=== PATIENT | female | born 1975 | race Caucasian/White ===

== ENCOUNTER 2016-07-25 12:26 | Emergency (ER) | payer MEDICAID ==
[~2016-07-25] VITALS: Ht 167.6 cm; Wt 70.0 kg
[~2016-07-25 12:26] MED LIST: CLIN1CAP5 PO; IBUP800T23 PO; METH750T2 PO
[2016-07-25 12:27] VITALS: BP 138/79; PULSE 84; RESP 22; TEMP 97.9; O2SAT 97
[2016-07-25] MEDS ORDERED: IBUP-232 PO (16:48)
== END 2016-07-25 15:30 | disposition left against medical advice (07) ==
LOC: NED 12:26
DX: R51 Headache (principal)
CPT/HCPCS: 99281

== ENCOUNTER 2016-07-25 13:05 | Emergency (ER) | payer MEDICAID ==
[~2016-07-25] VITALS: Ht 167.6 cm; Wt 78.0 kg
[2016-07-25 13:11] VITALS: BP 140/108; PULSE 94; RESP 16; TEMP 98.1; O2SAT 100
--- NOTE | 2016-07-25 15:10 | PD ---
HPI Chief Complaint: Headache Time Seen by Provider: 14:56 Travel History International Travel<30 days: No Contact w/Intl Traveler<30days: No Traveled to known affect area: No History of Present Illness HPI 40yo F with no significant PMH presents to the ED with c/o generalized pain everywhere as well as a headache today. +Nausea. Pt states she has frequent headaches and usually takes tylenol but did not today. Denies any fever, neck pain, visual changes, focal weakness or numbness, chest pain, sob, vomiting. Denies any fall. PFSH Past Medical History Diminished Hearing: No Genitourinary: Yes (HERPES) Headaches: Yes Neurologic: Yes (MRI OF BRAIN SHOWED ABNORMALITY ON LEFT SIDE 2008 , MRI 2012 - NORMAL) Migraines: Yes Tetanus Vaccination: > 5 Years Influenza Vaccination: No ?: Not Menopausal: No : 4 Para: 3 Miscarriage: 1 : 1 Past Surgical History Tonsillectomy: Yes Social History Alcohol Use: Yes (OCCASIONAL) Tobacco Use: Yes (1/2PPD) Substance Use: No Allergies-Medications (Allergen,Severity, Reaction): Coded Allergies: Amoxicillin (Verified Allergy, Severe, HIVES/SOB, 07/25/16) Ampicillin (Verified Allergy, Severe, NOTED ON LABOR ROOM ORDERS RXN?, 07/25/16) Penicillin (Verified Allergy, Severe, hives/sob, 07/25/16) Reported Meds & Prescriptions Reported Meds & Active Scripts Active No Active Prescriptions or Reported Medications Review of Systems Except as stated in HPI: all other systems reviewed are Neg Physical Exam Narrative GENERAL: 40yo F in mild distress. SKIN: Warm and dry. HEAD: Atraumatic. Normocephalic. EYES: Pupils equal and round. No scleral icterus. No injection or drainage. ENT: No nasal bleeding or discharge. Mucous membranes pink and moist. NECK: Trachea midline. No JVD. CARDIOVASCULAR: Regular rate and rhythm. No murmur appreciated. RESPIRATORY: No accessory muscle use. Clear to auscultation. Breath sounds equal bilaterally. GASTROINTESTINAL: Abdomen soft, non-tender, nondistended. No rebound tenderness or guarding. MUSCULOSKELETAL: No obvious deformities. No clubbing. No cyanosis. No edema. NEUROLOGICAL: Awake and alert. No obvious cranial nerve deficits. Motor grossly within normal limits. Normal speech. Data Data Last Documented VS Vital Signs Date Time Temp Pulse Resp B/P Pulse Ox O2 Delivery O2 Flow Rate FiO2 07/25/16 16:30 16 07/25/16 16:29 84 140/82 97 Room Air 07/25/16 13:11 98.1 Orders Ketorolac Inj (Toradol Inj) (07/25/16 15:15) Ondansetron Inj (Zofran Inj) (07/25/16 15:15) Sodium Chlor 0.9% 1000 Ml Inj (Ns 1000 M (07/25/16 15:15) Urinalysis - C+S If Indicated (07/25/16 15:01) Ed Urine Pregnancytest Poc (07/25/16 15:01) Influenzae A/B Antigen (07/25/16 15:10) Diazepam (Valium) (07/25/16 16:15) Labs Laboratory Tests Test 07/25/16 15:00 Urine Collection Type CLEAN CATCH Urine Color STRAW Urine Turbidity SLIGHT Urine pH 8.0 Urine Specific [place] 1.013 Urine Protein NEG mg/dL Urine Glucose (UA) NEG mg/dL Urine Ketones NEG mg/dL Urine Occult Blood TRACE Urine Nitrite NEG Urine Bilirubin NEG Urine Leukocyte Esterase NEG Urine RBC 4-9 /hpf Urine Squamous Epithelial 6-8 /hpf Cells Urine Amorphous Sediment FEW Microscopic Urinalysis Comment CULT NOT INDICATED Urine Collection Time 1500 MDM Medical Decision Making Medical Screen Exam Complete: Yes Emergency Medical Condition: Yes Differential Diagnosis Influenza vs. migraine headache vs. tension headache vs. malingering Narrative Course 40yo F with generalized pain as well as headache that feels like her normal headache. Pt did not take anything for pain at home. No focal neurologic deficits. No red flags. UA negative. VS stable. Pt given toradol, zofran and NS IVF and headache resolved. Urine negative. Pt given valium 5mg PO and no longer has pain in her body. Return precautions given. Diagnosis Primary Impression: Headache Qualified Code: G44.209 - Acute non intractable tension-type headache Patient Instructions: General Instructions Departure Forms: Tests/Procedures Additional Instructions: Please return to the ED if symptoms worsen. Please follow up with PMD in 3-7 days. Med/Other Pt SpecificInfo: Prescription(s) given Scripts Ibuprofen 600 Mg Cyr087 Mg PO Q8HR PRN (PAIN) #20 TAB Ref 0 Prov:Miranda,Yani DO 07/25/16 Disposition: 01 DISCHARGE HOME Condition: Stable Yani Miranda DO Jul 25, 2016 15:10
[2016-07-25] MEDS ORDERED: SODIUM CHLOR 0.9% 1000 ML INJ 1,000 ML IV ONE (15:15)
[2016-07-25] MEDS ORDERED: KETOROLAC TROMETHAMINE 30 MG/ML (IVP) VIAL IV PUSH ONE (15:15)
[2016-07-25] MEDS ORDERED: ONDANSETRON HCL 4 MG/2 ML VIAL IV PUSH ONE (15:15)
[2016-07-25 15:30] LABS: BLOOD, URINE TRACE (NEG); GLUCOSE,URINE NEG (NEG); KETONE, URINE NEG (NEG); NITRITE,URINE NEG (NEG)
[2016-07-25 15:34] LABS: METHOD OF COLLECTION CLEAN CATCH; URINE COLOR STRAW (YELLW/STRAW)
[2016-07-25 15:38] LABS: COMMENT (UR) CULT NOT INDICATED; CULTURE IF INDICATED CULT NOT INDICATED
[2016-07-25] MEDS ORDERED: DIAZEPAM 5 MG TAB PO ONE (16:15)
[2016-07-25 16:29] VITALS: BP 140/82; PULSE 84; RESP 18; O2SAT 97
[2016-07-25 16:30] VITALS: RESP 16
[2016-07-25] MEDS ORDERED: IBUP-232 PO (16:48)
== END 2016-07-25 17:20 | disposition home or self-care (01) ==
LOC: PHED 13:05
DX: R51 Headache (principal); R52 Pain, unspecified; R11.0 Nausea; F17.210 Nicotine dependence, cigarettes, uncomplicated
CPT/HCPCS: 81001; 84703; 87804; 96361; 96374; 96375; 99284; J1885; J2405; J7030

== ENCOUNTER 2017-09-10 16:14 | Observation (INO) | payer MEDICAID, OTHER ==
[~2017-09-10] VITALS: Ht 162.6 cm; Wt 80.0 kg
[~2017-09-10 16:14] MED LIST changes: -CLIN1CAP5 PO; +IBUP-232 PO; -IBUP800T23 PO; -METH750T2 PO
[2017-09-10 16:28] VITALS: BP 125/83; PULSE 120; RESP 24; O2SAT 99
[2017-09-10] MEDS ORDERED: SODIUM CHLOR 0.9% 1000 ML INJ 1,000 ML IV SCH (16:36)
--- NOTE | 2017-09-10 16:38 | PD ---
HPI Chief Complaint: Abdominal Pain Time Seen by Provider: 16:35 Travel History International Travel<30 days: No Contact w/Intl Traveler<30days: No Traveled to known affect area: No History of Present Illness HPI 41-year-old female presents emergency department with reports of several days of feeling constipated, but awakening this morning with nausea, vomiting, increasing pain which is now localized into the right lower quadrant. Patient states pain radiates to her back. She denies fever or chills. Patient denies urinary symptoms. No history of kidney stones. Patient still has her appendix. Patient denies . Pain is 10 out of 10. Patient is very emotional and crying. Patient is allergic to amoxicillin. PFSH Past Medical History Diminished Hearing: No Genitourinary: Yes (HERPES) Headaches: Yes Neurologic: Yes (MRI OF BRAIN SHOWED ABNORMALITY ON LEFT SIDE 2008 , MRI 2012 - NORMAL) Migraines: Yes Tetanus Vaccination: > 5 Years Influenza Vaccination: Yes ?: Unknown Menopausal: No : 4 Para: 3 Miscarriage: 1 : 1 Past Surgical History Tonsillectomy: Yes Social History Alcohol Use: Yes (OCCASIONAL) Tobacco Use: Yes (1/2PPD) Substance Use: No Allergies-Medications (Allergen,Severity, Reaction): Coded Allergies: amoxicillin (Verified Allergy, Severe, HIVES/SOB, 09/10/17) ampicillin (Verified Allergy, Severe, rash, 09/10/17) penicillin G (Verified Allergy, Intermediate, hives/sob, 09/10/17) Reported Meds & Prescriptions Reported Meds & Active Scripts Active No Active Prescriptions or Reported Medications Review of Systems General / Constitutional: Positive: Chills, No: Fever Eyes: No: Visual changes HENT: No: Headaches Cardiovascular: No: Chest Pain or Discomfort Respiratory: No: Shortness of Breath Gastrointestinal: Positive: Nausea, Vomiting, Abdominal Pain (See history of present illness), Constipation, Loss of Appetite Genitourinary: No: Urgency, Frequency, Dysuria, Vaginal Bleeding Musculoskeletal: No: Pain Skin: No Rash Neurologic: No: Weakness Psychiatric: No: Depression Endocrine: No: Polydipsia Hematologic/Lymphatic: No: Easy Bruising Physical Exam Narrative GENERAL: Patient is very histrionic, crying, obviously in pain. She is able to ambulate to the bathroom for urine however. SKIN: Warm and dry. Normal color. Normal turgor. No rash HEAD: Atraumatic. Normocephalic. EYES: Pupils equal and round. No scleral icterus. No injection or drainage. ENT: No nasal bleeding or discharge. Mucous membranes pink and moist. Pharynx is clear. Airways patent. NECK: Trachea midline. Supple and nontender CARDIOVASCULAR: Regular rate and rhythm. RESPIRATORY: No accessory muscle use. Clear to auscultation. Breath sounds equal bilaterally. GASTROINTESTINAL: Abdomen soft, patient has moderate right lower quadrant tenderness with point tenderness and guarding, nondistended. Exam is limited secondary to patient's pain and lack of cooperation. Hepatic and splenic margins not palpable. MUSCULOSKELETAL: Extremities without clubbing, cyanosis, or edema. No obvious deformities. NEUROLOGICAL: Awake and alert. No obvious cranial nerve deficits. Motor grossly within normal limits. Five out of 5 muscle strength in the arms and legs. Normal speech. PSYCHIATRIC: Appropriate mood and affect; insight and judgment normal. Data Data Last Documented VS Vital Signs Date Time Temp Pulse Resp B/P (MAP) Pulse Ox O2 Delivery O2 Flow Rate FiO2 09/10/17 19:10 104 22 151/70 (97) 100 Room Air Orders Orders Complete Blood Count With Diff (09/10/17 16:36) Comprehensive Metabolic Panel (09/10/17 16:36) Lipase (09/10/17 16:36) Lactic Acid (09/10/17 16:36) Prothrombin Time / Inr (Pt) (09/10/17 16:36) Act Partial Throm Time (Ptt) (09/10/17 16:36) Urinalysis - C+S If Indicated (09/10/17 16:36) Ct Abd/Pel W Iv Contrast(Rout) (09/10/17 16:36) Iv Access Insert/Monitor (09/10/17 16:36) Ecg Monitoring (09/10/17 16:36) Oximetry (09/10/17 16:36) Morphine Inj (Morphine Inj) (09/10/17 16:45) Ondansetron Inj (Zofran Inj) (09/10/17 16:45) Sodium Chlor 0.9% 1000 Ml Inj (Ns 1000 M (09/10/17 16:36) Sodium Chloride 0.9% Flush (Ns Flush) (09/10/17 16:45) Electrocardiogram (09/10/17 16:36) Ed Urine Pregnancytest Poc (09/10/17 16:36) Dicyclomine Inj (Bentyl Inj) (09/10/17 17:15) Morphine Inj (Morphine Inj) (09/10/17 17:15) Iohexol 350 Inj (Omnipaque 350 Inj) (09/10/17 17:47) Hydromorphone Pf Inj (Dilaudid Pf Inj) (09/10/17 18:30) Metoclopramide Inj (Reglan Inj) (09/10/17 18:45) Ketorolac Inj (Toradol Inj) (09/10/17 19:30) Us Pelvis Comp W Doppler (09/10/17 ) Admit Order (Ed Use Only) (09/10/17 20:37) Labs Laboratory Tests Test 09/10/17 17:00 09/10/17 17:10 09/10/17 17:11 White Blood Count 19.8 TH/MM3 Red Blood Count 4.49 MIL/MM3 Hemoglobin 14.5 GM/DL Hematocrit 40.6 % Mean Corpuscular Volume 90.5 FL Mean Corpuscular Hemoglobin 32.3 PG Mean Corpuscular Hemoglobin Concent 35.6 % Red Cell Distribution Width 13.0 % Platelet Count 234 TH/MM3 Mean Platelet Volume 9.1 FL Neutrophils (%) (Auto) 77.6 % Lymphocytes (%) (Auto) 13.7 % Monocytes (%) (Auto) 5.5 % Eosinophils (%) (Auto) 3.0 % Basophils (%) (Auto) 0.2 % Neutrophils # (Auto) 15.4 TH/MM3 Lymphocytes # (Auto) 2.7 TH/MM3 Monocytes # (Auto) 1.1 TH/MM3 Eosinophils # (Auto) 0.6 TH/MM3 Basophils # (Auto) 0.0 TH/MM3 CBC Comment DIFF FINAL Differential Comment Prothrombin Time 10.3 SEC Prothromb Time International Ratio 1.0 RATIO Activated Partial Thromboplast Time 29.6 SEC Blood Urea Nitrogen 17 MG/DL Creatinine 0.98 MG/DL Random Glucose 117 MG/DL Total Protein 8.5 GM/DL Albumin 4.7 GM/DL Calcium Level 9.4 MG/DL Alkaline Phosphatase 53 U/L Aspartate Amino Transf (AST/SGOT) 27 U/L Alanine Aminotransferase (ALT/SGPT) 22 U/L Total Bilirubin 0.9 MG/DL Sodium Level 135 MEQ/L Potassium Level 4.3 MEQ/L Chloride Level 103 MEQ/L Carbon Dioxide Level 21.6 MEQ/L Anion Gap 10 MEQ/L Estimat Glomerular Filtration Rate 63 ML/MIN Lipase 46 U/L Lactic Acid Level 1.2 mmol/L Urine Color DARK-BROWN Urine Turbidity HAZY Urine pH 5.5 Urine Specific [place] GREATER THAN 1.050 Urine Protein 300 mg/dL Urine Glucose (UA) NEG mg/dL Urine Ketones TRACE mg/dL Urine Occult Blood SMALL Urine Nitrite NEG Urine Bilirubin NEG Urine Urobilinogen 4.0 MG/DL Urine Leukocyte Esterase TRACE Urine RBC 8 /hpf Urine Squamous Epithelial Cells 1 /hpf Urine Calcium Oxalate Crystals MOD /hpf Urine Hyaline Casts 4 /lpf Urine Mucus MANY /lpf Microscopic Urinalysis Comment CULT NOT INDICATED MDM Medical Decision Making Medical Screen Exam Complete: Yes Emergency Medical Condition: Yes Medical Record Reviewed: Yes Differential Diagnosis Right lower quadrant pain. Appendicitis. Ectopic . Torsed ovary. Urinary tract infection. Renal colic. Diverticulitis. Narrative Course Patient is medically stable at time of exam. Labs ordered including CBC, CMP, lactic acid, lipase, urinalysis, urine , serum hCG. IV access is obtained the patient is given 4 mg morphine IV, as well as [address] of the abdomen with IV contrast is given. CBC shows leukocytosis of 19.8. Coagulation studies are unremarkable. Chemistry shows sodium 135, normal BUN and creatinine. Random glucose 117, lactic acid 1.2. Lipase is normal at 46. CT scan read as: . Nonspecific appearance to the bowel with mild dilation of distal small bowel loops and some air-fluid levels in the colon. The findings suggest ileus. Recommend serial films. Patient discussed with Dr. Villalobos. Call was placed by Dr. Villalobos to the radiologist and the CT results were specifically discussed questioning whether there was any sign of appendicitis. Dr. Gomez explained no signs of acute appendicitis are noted on this study, and that he feels this is more of an ileus by his reading. Patient was given Dilaudid 2 mg IV as well as 10 mg Reglan IV. Pelvic ultrasound was ordered to rule out ovarian torsion. 1900 hrs., pelvic ultrasound is still pending. Care of the patient is assumed by Dr. Villalobos, and he will determine final disposition of the patient. Scripts No Active Prescriptions or Reported Meds Condition: Stable Samuel,Dillon F. PA Sep 10, 2017 16:38
[2017-09-10] MEDS ORDERED: ONDANSETRON HCL 4 MG/2 ML VIAL IVP ONE (16:45)
[2017-09-10] MEDS ORDERED: SODIUM CHLORIDE 0.9% FLUSH 10 ML FLUSH IV FLUSH PRN ×2 (16:45→21:45)
[2017-09-10] MEDS ORDERED: MORPHINE SULFATE 4 MG/ML INJ IV PUSH ONE (16:45)
[2017-09-10 17:08] VITALS: PULSE 99; RESP 16; O2SAT 100
[2017-09-10] MEDS ORDERED: MORPHINE SULFATE 2 MG/ML INJ IV PUSH ONE (17:15)
[2017-09-10] MEDS ORDERED: DICYCLOMINE HCL 20 MG/2 ML VIAL IM ONE (17:15)
[2017-09-10] MEDS ORDERED: IOHEXOL 350 MG/ML 10 ML VIAL (for RAD DIAG) IVCONTRAST ONE (17:47)
[2017-09-10 17:51] LABS: AUTOMATED NEUTROPHIL # 15.4 TH/MM3 (1.8-7.7); BASOPHIL % 0.2 % (0.0-2.0); EOSINOPHIL # 0.6 TH/MM3 (0-0.4); HEMATOCRIT 40.6 % (35.0-46.0); HEMOGLOBIN 14.5 GM/DL (11.6-15.3); LYMPH % 13.7 % (9.0-44.0); LYMPHOCYTE # 2.7 TH/MM3 (1.0-4.8); MEAN CELL VOLUME 90.5 FL (80.0-100.0); MEAN CORPUSCULAR HEMOGLOBIN 32.3 PG (27.0-34.0); MEAN CORPUSCULAR HGB CONC 35.6 % (32.0-36.0); MEAN PLATELET VOLUME 9.1 FL (7.0-11.0); MONO % 5.5 % (0.0-8.0); MONOCYTE # 1.1 TH/MM3 (0-0.9); NEUT % 77.6 % (16.0-70.0); PLATELET COUNT 234 TH/MM3 (150-450); RED BLOOD COUNT 4.49 MIL/MM3 (4.00-5.30); WHITE BLOOD COUNT 19.8 TH/MM3 (4.0-11.0)
[2017-09-10 18:01] LABS: PROTHROMBIN TIME - PATIENT 10.3 SEC (9.8-11.6)
[2017-09-10 18:07] LABS: ALBUMIN 4.7 GM/DL (3.4-5.0); ALT (GPT) 22 U/L (10-53); AST (GOT) 27 U/L (15-37); BICARBONATE 21.6 MEQ/L (21.0-32.0); BLOOD UREA NITROGEN 17 MG/DL (7-18); CALCIUM 9.4 MG/DL (8.5-10.1); CHLORIDE 103 MEQ/L (98-107); CREATININE 0.98 MG/DL (0.50-1.00); GLOMERULAR FILTRATION RATE 63 ML/MIN (>89); GLUCOSE,RANDOM 117 MG/DL (74-106); SODIUM (NA) 135 MEQ/L (136-145)
[2017-09-10 18:09] LABS: ALKALINE PHOSPHATASE 53 U/L (45-117); TOTAL BILIRUBIN ADULT 0.9 MG/DL (0.2-1.0); TOTAL PROTEIN 8.5 GM/DL (6.4-8.2)
--- NOTE | 2017-09-10 18:27 | RADRPT ---
EXAM DATE/TIME: 09/10/2017 17:45 [facility] COMPARISON: No previous studies available for comparison. INDICATIONS : Severe right side abdomen pain with nausea and vomiting. IV CONTRAST: 91 cc Omnipaque 350 (iohexol) IV ORAL CONTRAST: No oral contrast ingested. RADIATION DOSE: 8.76 CTDIvol (mGy) MEDICAL HISTORY : None SURGICAL HISTORY : None. ENCOUNTER: Initial ACUITY: 1 day PAIN SCALE: 10/10 LOCATION: Right TECHNIQUE: Volumetric scanning of the abdomen and pelvis was performed. Using automated exposure control and ad justment of the mA and/or kV according to patient size, radiation dose was kept as low as reasonably achievable to obtain optimal diagnostic quality images. DICOM format image data is available electro nically for review and comparison. FINDINGS: There is a mild motion degradation of the abdominal images. LOWER LUNGS: The visualized lower lungs are clear. LIVER: Homogeneous density without lesion. There is no dilation of the biliary tree. No calcified gallston es. SPLEEN: Normal size without lesion. PANCREAS: Within normal limits. KIDNEYS: Normal in size and shape. There is no mass, stone or hydronephrosis. ADRENAL GLANDS: Within normal limits. VASCULAR: There is no aortic aneurysm. BOWEL/MESENTERY: There are mildly prominent fluid filled loops of mid and distal small bowel measuring up to 2.8 cm in dimension. The colon also contains fluid with some colonic air fluid levels. Stool is seen in the rectum and sigmoid.. ABDOMINAL WALL: Within normal limits. RETROPERITONEUM: There is no lymphadenopathy. BLADDER: No wall thickening or mass. REPRODUCTIVE: T-shaped IUD in the anteverted uterus. No evidence of free fluid. INGUINAL: There is no lymphadenopathy or hernia. MUSCULOSKELETAL: Within normal limits for patient age. CONCLUSION: 1. Nonspecific appearance to the bowel with mild dilation of distal small bowel loops and some air-fl uid levels in the colon. The findings suggest ileus. Recommend serial films. Sidney Gomez MD on September 10, 2017 at 18:20 Board Certified Radiologist. This report was verified electronically.
[2017-09-10] MEDS ORDERED: HYDROmorphone HCL PF 2 MG/ML VIAL IV PUSH ONE (18:30)
[2017-09-10] MEDS ORDERED: METOCLOPRAMIDE HCL 10 MG/2 ML VIAL IV PUSH ONE (18:45)
[2017-09-10 18:49] LABS: BLOOD, URINE SMALL (NEG); CALCIUM OXALATE CRYSTALS,URINE MOD /hpf; GLUCOSE,URINE NEG (NEG); HYALINE CAST, URINE 4 /lpf (RARE); KETONE, URINE TRACE mg/dL (NEG); MUCUS URINE MANY /lpf (OCC); NITRITE,URINE NEG (NEG); PH, URINE 5.5 (5.0-8.5); SQUAMOUS EPITHELIAL CELL URINE 1 /hpf (0-5); URINE LEUKOCYTE ESTERASE TRACE (NEG)
[2017-09-10 18:55] LABS: BILIRUBIN, URINE NEG (NEG); URINE COLOR DARK-BROWN (YELLW/STRAW)
[2017-09-10 19:10] VITALS: BP 151/70; PULSE 104; RESP 22; O2SAT 100
[2017-09-10] MEDS ORDERED: KETOROLAC TROMETHAMINE 30 MG/ML (IVP) VIAL IV PUSH ONE (19:30)
--- NOTE | 2017-09-10 20:09 | RADRPT ---
EXAM DATE/TIME: 09/10/2017 19:26 [facility] COMPARISON: No previous studies available for comparison. INDICATIONS : Pelvic pain. MEDICAL HISTORY : . x 1. Herpes. Migraines. SURGICAL HISTORY : Tonsillectomy. ENCOUNTER: Initial ACUITY: 1 day PAIN SCORE: 7/10 LOCATION: Bilateral pelvis MEASUREMENTS: UTERUS: 8.6 x 6.4 x 4.5 cm ENDOMETRIAL STRIPE: 3 mm RIGHT OVARY: 4.3 x 3.2 x 3.4 cm LEFT OVARY: 3.8 x 2.5 x 2.3 cm FINDINGS: UTERUS: The myometrium has homogeneous echotexture without mass. The endometrial stripe is grossly unremarkab le, with IUD in place. RIGHT OVARY: No evidence of mass. Several cysts measuring up to 2.1 cm. LEFT OVARY: No evidence of mass. Solitary cyst measuring 1.9 cm. MISCELLANEOUS: No free fluid. CONCLUSION: Bilateral ovarian cysts. No evidence of free fluid. Sidney Gomez MD on September 10, 2017 at 20:05 Board Certified Radiologist. This report was verified electronically.
--- NOTE | 2017-09-10 20:40 | PD ---
Data Data Last Documented VS Vital Signs Date Time Temp Pulse Resp B/P (MAP) Pulse Ox O2 Delivery O2 Flow Rate FiO2 09/10/17 19:10 104 22 151/70 (97) 100 Room Air Orders Orders Complete Blood Count With Diff (09/10/17 16:36) Comprehensive Metabolic Panel (09/10/17 16:36) Lipase (09/10/17 16:36) Lactic Acid (09/10/17 16:36) Prothrombin Time / Inr (Pt) (09/10/17 16:36) Act Partial Throm Time (Ptt) (09/10/17 16:36) Urinalysis - C+S If Indicated (09/10/17 16:36) Ct Abd/Pel W Iv Contrast(Rout) (09/10/17 16:36) Iv Access Insert/Monitor (09/10/17 16:36) Ecg Monitoring (09/10/17 16:36) Oximetry (09/10/17 16:36) Morphine Inj (Morphine Inj) (09/10/17 16:45) Ondansetron Inj (Zofran Inj) (09/10/17 16:45) Sodium Chlor 0.9% 1000 Ml Inj (Ns 1000 M (09/10/17 16:36) Sodium Chloride 0.9% Flush (Ns Flush) (09/10/17 16:45) Electrocardiogram (09/10/17 16:36) Ed Urine Pregnancytest Poc (09/10/17 16:36) Dicyclomine Inj (Bentyl Inj) (09/10/17 17:15) Morphine Inj (Morphine Inj) (09/10/17 17:15) Iohexol 350 Inj (Omnipaque 350 Inj) (09/10/17 17:47) Hydromorphone Pf Inj (Dilaudid Pf Inj) (09/10/17 18:30) Metoclopramide Inj (Reglan Inj) (09/10/17 18:45) Ketorolac Inj (Toradol Inj) (09/10/17 19:30) Us Pelvis Comp W Doppler (09/10/17 ) Admit Order (Ed Use Only) (09/10/17 20:37) Labs Laboratory Tests Test 09/10/17 17:00 09/10/17 17:10 09/10/17 17:11 White Blood Count 19.8 TH/MM3 Red Blood Count 4.49 MIL/MM3 Hemoglobin 14.5 GM/DL Hematocrit 40.6 % Mean Corpuscular Volume 90.5 FL Mean Corpuscular Hemoglobin 32.3 PG Mean Corpuscular Hemoglobin Concent 35.6 % Red Cell Distribution Width 13.0 % Platelet Count 234 TH/MM3 Mean Platelet Volume 9.1 FL Neutrophils (%) (Auto) 77.6 % Lymphocytes (%) (Auto) 13.7 % Monocytes (%) (Auto) 5.5 % Eosinophils (%) (Auto) 3.0 % Basophils (%) (Auto) 0.2 % Neutrophils # (Auto) 15.4 TH/MM3 Lymphocytes # (Auto) 2.7 TH/MM3 Monocytes # (Auto) 1.1 TH/MM3 Eosinophils # (Auto) 0.6 TH/MM3 Basophils # (Auto) 0.0 TH/MM3 CBC Comment DIFF FINAL Differential Comment Prothrombin Time 10.3 SEC Prothromb Time International Ratio 1.0 RATIO Activated Partial Thromboplast Time 29.6 SEC Blood Urea Nitrogen 17 MG/DL Creatinine 0.98 MG/DL Random Glucose 117 MG/DL Total Protein 8.5 GM/DL Albumin 4.7 GM/DL Calcium Level 9.4 MG/DL Alkaline Phosphatase 53 U/L Aspartate Amino Transf (AST/SGOT) 27 U/L Alanine Aminotransferase (ALT/SGPT) 22 U/L Total Bilirubin 0.9 MG/DL Sodium Level 135 MEQ/L Potassium Level 4.3 MEQ/L Chloride Level 103 MEQ/L Carbon Dioxide Level 21.6 MEQ/L Anion Gap 10 MEQ/L Estimat Glomerular Filtration Rate 63 ML/MIN Lipase 46 U/L Lactic Acid Level 1.2 mmol/L Urine Color DARK-BROWN Urine Turbidity HAZY Urine pH 5.5 Urine Specific [place] GREATER THAN 1.050 Urine Protein 300 mg/dL Urine Glucose (UA) NEG mg/dL Urine Ketones TRACE mg/dL Urine Occult Blood SMALL Urine Nitrite NEG Urine Bilirubin NEG Urine Urobilinogen 4.0 MG/DL Urine Leukocyte Esterase TRACE Urine RBC 8 /hpf Urine Squamous Epithelial Cells 1 /hpf Urine Calcium Oxalate Crystals MOD /hpf Urine Hyaline Casts 4 /lpf Urine Mucus MANY /lpf Microscopic Urinalysis Comment CULT NOT INDICATED MDM Supervised Visit with SHWETA: Yes Narrative Course I, Dr. Villalobos, have reviewed the advance practice practitioner's documentation and am in agreement, met with the patient face to face, made the diagnosis, and the medical decision making was done by me. See his note for further details. Briefly this is a 41-year-old female who is here complaining of severe right lower quadrant abdominal pain and constipation. She was promptly taken to CT scan which shows ileus. I discussed the findings with the reading radiologist Dr. Gomez who does not see any signs of appendicitis although the appendix is not directly visualized. Patient had continued pain in the emergency department and was going to and from the restroom several times that she felt as though she needed to have a bowel movement. Because of ongoing pain requiring several doses of pain medicine, pelvic ultrasound was also ordered to rule out torsion. This ultrasound shows bilateral ovarian cysts with normal blood flow to bilateral ovaries. The patient then had a large bowel movement in the emergency department and afterwards had relief of symptoms only after receiving 2 doses of 4 mg of IV morphine, 1 mg of IV Dilaudid, and 30 mg of IV Toradol. Given ongoing pain, the patient will be admitted for overnight observation for intractable abdominal pain. The patient and the patient's father were made aware of all findings. Case discussed with hospitalist Dr. Bishop who will admit the patient to her service. Diagnosis Primary Impression: Intractable abdominal pain Additional Impression: Ileus Admitting Information Admitting Physician Requests: Observation Scripts No Active Prescriptions or Reported Meds Condition: Sen Sánchez MD Sep 10, 2017 20:40
[2017-09-10] MEDS ORDERED: ONDANSETRON HCL 4 MG/2 ML VIAL IVP PRN (21:45)
[2017-09-10] MEDS ORDERED: MORPHINE SULFATE 2 MG/ML INJ IV PUSH PRN (21:45)
[2017-09-10] MEDS ORDERED: MORPHINE SULFATE 4 MG/ML INJ IV PUSH PRN (21:45)
[2017-09-10] MEDS ORDERED: NALOXONE HCL 0.4 MG/ML AMP IV PUSH PRN (21:45)
--- NOTE | 2017-09-10 22:04 | HHI.HP ---
[facility] Enio Yung DO Admission Diagnosis Intractable abdominal pain, ovarian cysts Diagnoses: Travel History International Travel<30 Days: No Contact w/Intl Traveler <30 Da: No Traveled to Known Affected Are: No History of Present Illness 41-year-old female presents to the emergency department for evaluation of severe , right-sided lower quadrant abdominal pain. Per ED report, the patient reports several days of feeling constipated but awoke this morning with nausea/ vomiting and increasing pain. The patient states that the pain radiated to her back. She denied any fever or chills. Denies urinary symptoms. She states the pain was 10/10 and was very emotional and crying. During the time of our interview, the patient is sleeping. It took several attempts to awaken the patient who states that she came for "stomach pain." She reports she still has pain in her abdomen. No chest pain or shortness of breath. Denies nausea/ vomiting/diarrhea. Did have a bowel movement while in the emergency department. Review of Systems Except as stated in HPI: all other systems reviewed are Neg Past Family Social History Past Medical History None Past Surgical History Tonsillectomy Reported Medications Reported Meds & Active Scripts Active No Active Prescriptions or Reported Medications Allergies: Coded Allergies: amoxicillin (Verified Allergy, Severe, HIVES/SOB, 09/10/17) ampicillin (Verified Allergy, Severe, rash, 09/10/17) penicillin G (Verified Allergy, Intermediate, hives/sob, 09/10/17) Family History Negative for CAD/DM Social History Smokes approximately 6-8 cigarettes per day. Denies alcohol or illicit drugs Physical Exam Vital Signs Vital Signs Date Time Temp Pulse Resp B/P (MAP) Pulse Ox O2 Delivery O2 Flow Rate FiO2 09/10/17 19:10 104 22 151/70 (97) 100 Room Air 09/10/17 17:30 16 09/10/17 17:08 99 16 100 Room Air 09/10/17 17:07 18 09/10/17 16:35 17 09/10/17 16:28 120 24 125/83 (97) 99 Physical Exam GENERAL: female lying in bed, sleeping SKIN: No rashes, ecchymoses or lesions. Cool and dry. HEAD: Atraumatic. Normocephalic. No temporal or scalp tenderness. EYES: Pupils equal round and reactive. Extraocular motions intact. No scleral icterus. No injection or drainage. ENT: Nose without bleeding, purulent drainage or septal hematoma. Throat without erythema, tonsillar hypertrophy or exudate. Uvula midline. Airway patent. NECK: Trachea midline. No JVD or lymphadenopathy. Supple, nontender, no meningeal signs. CARDIOVASCULAR: Regular rate and rhythm without murmurs, gallops, or rubs. RESPIRATORY: Clear to auscultation. Breath sounds equal bilaterally. No wheezes , rales, or rhonchi. GASTROINTESTINAL: Abdomen soft, tender with palpation in the bilateral lower quadrants, nondistended. No hepato-splenomegaly, or palpable masses. No guarding. MUSCULOSKELETAL: Extremities without clubbing, cyanosis, or edema. No joint tenderness, effusion, or edema noted. No calf tenderness. NEUROLOGICAL: Awake and alert. Cranial nerves II through XII intact. Motor and sensory grossly within normal limits. Normal speech. Laboratory Laboratory Tests Test 09/10/17 17:00 09/10/17 17:10 09/10/17 17:11 White Blood Count 19.8 Red Blood Count 4.49 Hemoglobin 14.5 Hematocrit 40.6 Mean Corpuscular Volume 90.5 Mean Corpuscular Hemoglobin 32.3 Mean Corpuscular Hemoglobin Concent 35.6 Red Cell Distribution Width 13.0 Platelet Count 234 Mean Platelet Volume 9.1 Neutrophils (%) (Auto) 77.6 Lymphocytes (%) (Auto) 13.7 Monocytes (%) (Auto) 5.5 Eosinophils (%) (Auto) 3.0 Basophils (%) (Auto) 0.2 Neutrophils # (Auto) 15.4 Lymphocytes # (Auto) 2.7 Monocytes # (Auto) 1.1 Eosinophils # (Auto) 0.6 Basophils # (Auto) 0.0 CBC Comment DIFF FINAL Differential Comment Prothrombin Time 10.3 Prothromb Time International Ratio 1.0 Activated Partial Thromboplast Time 29.6 Blood Urea Nitrogen 17 Creatinine 0.98 Random Glucose 117 Total Protein 8.5 Albumin 4.7 Calcium Level 9.4 Alkaline Phosphatase 53 Aspartate Amino Transf (AST/SGOT) 27 Alanine Aminotransferase (ALT/SGPT) 22 Total Bilirubin 0.9 Sodium Level 135 Potassium Level 4.3 Chloride Level 103 Carbon Dioxide Level 21.6 Anion Gap 10 Estimat Glomerular Filtration Rate 63 Lipase 46 Lactic Acid Level 1.2 Urine Color DARK-BROWN Urine Turbidity HAZY Urine pH 5.5 Urine Specific [employer] GREATER THAN 1.050 Urine Protein 300 Urine Glucose (UA) NEG Urine Ketones TRACE Urine Occult Blood SMALL Urine Nitrite NEG Urine Bilirubin NEG Urine Urobilinogen 4.0 Urine Leukocyte Esterase TRACE Urine RBC 8 Urine Squamous Epithelial Cells 1 Urine Calcium Oxalate Crystals MOD Urine Hyaline Casts 4 Urine Mucus MANY Microscopic Urinalysis Comment CULT NOT INDICATED Result Diagram: 09/10/17169909/10/171699 Caprini VTE Risk Assessment Caprini VTE Risk Assessment: No/Low Risk (score <= 1) Caprini Risk Assessment Model Point Value = 1 Point Value = 2 Point Value = 3 Point Value = 5 Age 41-60 Minor surgery BMI > 25 kg/m2 Swollen legs Varicose veins or History of unexplained or recurrent spontaneous Oral contraceptives or hormone replacement Sepsis (< 1 month) Serious lung disease, including pneumonia (< 1 month) Abnormal pulmonary function Acute myocardial infarction Congestive heart failure (< 1 month) History of inflammatory bowel disease Medical patient at bed rest Age 61-74 Arthroscopic surgery Major open surgery (> 45 min) Laparoscopic surgery (> 45 min) Malignancy Confined to bed (> 72 hours) Immobilizing plaster cast Central venous access Age >= 75 History of VTE Family history of VTE Factor V Leiden Prothrombin [id number] Lupus anticoagulant Anticardiolipin antibodies Elevated serum homocysteine Heparin-induced thrombocytopenia Other congenital or acquired thrombophilia Stroke (< 1 month) Elective arthroplasty Hip, pelvis, or leg fracture Acute spinal cord injury (< 1 month) Prophylaxis Regimen Total Risk Factor Score Risk Level Prophylaxis Regimen 0-1 Low Early ambulation 2 Moderate Order ONE of the following: *Sequential Compression Device (SCD) *Heparin 5000 units SQ BID 3-4 Higher Order ONE of the following medications: *Heparin 5000 units SQ TID *Enoxaparin/Lovenox 40 mg SQ daily (WT < 150 kg, CrCl > 30 mL/min) *Enoxaparin/Lovenox 30 mg SQ daily (WT < 150 kg, CrCl > 10-29 mL/min) *Enoxaparin/Lovenox 30 mg SQ BID (WT < 150 kg, CrCl > 30 mL/min) AND/OR *Sequential Compression Device (SCD) 5 or more Highest Order ONE of the following medications: *Heparin 5000 units SQ TID (Preferred with Epidurals) *Enoxaparin/Lovenox 40 mg SQ daily (WT < 150 kg, CrCl > 30 mL/min) *Enoxaparin/Lovenox 30 mg SQ daily (WT < 150 kg, CrCl > 10-29 mL/min) *Enoxaparin/Lovenox 30 mg SQ BID (WT < 150 kg, CrCl > 30 mL/min) AND *Sequential Compression Device (SCD) Assessment and Plan Assessment and Plan Assessment/plan: 1. Intractable abdominal pain/ileus Patient status post bowel movement in the emergency department Is resting comfortably at the time of my examination Nothing by mouth Morphine for pain FEN NPO Electrolytes: Monitor and replete when necessary NS at 100 cc/hour Ambulation Rubi Bishop MD Sep 10, 2017 22:04
--- NOTE | 2017-09-10 23:44 | EKG ---
Date Performed: 09/10/2017 Time Performed: 17:30:01 PTAGE: 41 years EKG: Sinus rhythm NORMAL ECG PREVIOUS TRACING : 05/04/2009 01.39 Since the prior tracing, there has been no significant barragan DOCTOR: Rodolfo Navas Interpretating Date/Time 09/10/2017 23:44:22
[2017-09-11 00:44] VITALS: BP 130/72; PULSE 99; RESP 16; O2SAT 97
[2017-09-11] MEDS: SODIUM CHLOR 0.9% 1000 ML INJ 1,000 ML IV SCH ×3 (02:12→17:28)
[2017-09-11 05:55] LABS: AUTOMATED NEUTROPHIL # 12.3 TH/MM3 (1.8-7.7); BASOPHIL % 0.2 % (0.0-2.0); EOSINOPHIL # 0.1 TH/MM3 (0-0.4); EOSINOPHIL % 0.7 % (0.0-4.0); HEMATOCRIT 36.8 % (35.0-46.0); HEMOGLOBIN 12.4 GM/DL (11.6-15.3); LYMPHOCYTE # 1.2 TH/MM3 (1.0-4.8); MEAN CELL VOLUME 91.3 FL (80.0-100.0); MEAN CORPUSCULAR HEMOGLOBIN 30.9 PG (27.0-34.0); MEAN CORPUSCULAR HGB CONC 33.8 % (32.0-36.0); MEAN PLATELET VOLUME 8.9 FL (7.0-11.0); MONO % 5.5 % (0.0-8.0); MONOCYTE # 0.8 TH/MM3 (0-0.9); NEUT % 85.6 % (16.0-70.0); PLATELET COUNT 207 TH/MM3 (150-450); RED BLOOD COUNT 4.03 MIL/MM3 (4.00-5.30); RED CELL DISTRIBUTION WIDTH 12.9 % (11.6-17.2); WHITE BLOOD COUNT 14.4 TH/MM3 (4.0-11.0)
[2017-09-11 06:24] LABS: BICARBONATE 26.6 MEQ/L (21.0-32.0); CALCIUM 7.9 MG/DL (8.5-10.1); CREATININE 0.86 MG/DL (0.50-1.00)
[2017-09-11 08:42] VITALS: BP 129/76; PULSE 89; RESP 17; TEMP 98.8; O2SAT 98
[2017-09-11] MEDS: SODIUM CHLORIDE 0.9% FLUSH 10 ML FLUSH IV FLUSH SCH ×2 (08:42→21:00)
--- NOTE | 2017-09-11 11:35 | HHI.DCPOC ---
Discharge Care Plan Diagnosis: (1) Constipation (2) Ileus Goals to Promote Your Health * To prevent worsening of your condition and complications * To maintain your health at the optimal level Directions to Meet Your Goals Take your medications as prescribed Follow your dietary instruction Follow activity as directed Keep your appointments as scheduled Take your immunizations and boosters as scheduled If your symptoms worsen call your PCP, if no PCP go to Urgent Care Center or Emergency Room Smoking is Dangerous to Your Health. Avoid second hand smoke Call the 24-hour hour crisis hotline for domestic abuse at Silvana Fang PA-C Sep 11, 2017 11:35
[2017-09-11] MEDS ORDERED: DOCUSATE SODIUM 50 MG/SENNA 8.6 MG TAB PO ONE (11:45)
[2017-09-11 11:54] VITALS: BP 138/76; PULSE 85; RESP 18; TEMP 98.4; O2SAT 100
--- NOTE | 2017-09-11 13:39 | HHI.PR ---
Subjective Remarks Follow-up ileus. Improved nausea, vomiting abdominal pain. No BM or gas today. Discussed with nursing Objective Vitals Vital Signs Date Time Temp Pulse Resp B/P (MAP) Pulse Ox O2 Delivery O2 Flow Rate FiO2 09/11/17 11:54 98.4 85 18 138/76 (96) 100 Room Air 09/11/17 08:42 98.8 89 17 129/76 (93) 98 Room Air 09/11/17 00:44 99 16 130/72 (91) 97 Room Air 09/10/17 19:10 104 22 151/70 (97) 100 Room Air 09/10/17 17:30 16 09/10/17 17:08 99 16 100 Room Air 09/10/17 17:07 18 09/10/17 16:35 17 09/10/17 16:28 120 24 125/83 (97) 99 I/O 09/10/17 09/10/17 09/10/17 09/11/17 09/11/17 09/11/17 07:00 15:00 23:00 07:00 15:00 23:00 Intake Total 1000 ml Balance 1000 ml Intake IV Total 1000 ml # Voids 1 # Bowel Movements 0 Result Diagram: 09/11/17 0530 09/11/17 0530 Imaging Last Impressions Abdomen/Pelvis CT 09/10/17 1636 Signed Impressions: Service Date/Time: September 17:45 - CONCLUSION: 1. Nonspecific appearance to the bowel with mild dilation of distal small bowel loops and some air-fluid levels in the colon. The findings suggest ileus. Recommend serial films. Sidney Gomez MD Pelvis Ultrasound 09/10/17 0000 Signed Impressions: Service Date/Time: September 19:26 - CONCLUSION: Bilateral ovarian cysts. No evidence of free fluid. Sidney Gomez MD Objective Remarks GENERAL: female lying in bed, well-developed and well-nourished SKIN: No rashes, ecchymoses or lesions. Cool and dry. CARDIOVASCULAR: Regular rate and rhythm without murmurs, gallops, or rubs. RESPIRATORY: Clear to auscultation. Breath sounds equal bilaterally. No wheezes , rales, or rhonchi. GASTROINTESTINAL: Abdomen soft, tender with palpation in the bilateral lower quadrants, nondistended. No guarding. MUSCULOSKELETAL: Extremities without clubbing, cyanosis, or edema. No joint tenderness, effusion, or edema noted. No calf tenderness. NEUROLOGICAL: Awake and alert. Cranial nerves II through XII intact. Motor and sensory grossly within normal limits. Normal speech. Procedures none A/P Problem List: (1) Intractable abdominal pain ICD Code: R10.9 - Unspecified abdominal pain Status: Acute (2) Ileus ICD Code: K56.7 - Ileus, unspecified Status: Acute Assessment and Plan 1. Intractable abdominal pain/ileus. Improving Patient status post bowel movement in the emergency department Is resting comfortably at the time of my examination Clear liquid diet and advance as tolerated IV Toradol with morphine for breakthrough pain 2. Constipation. Start Jada-Colace 3. leukocytosis likely reactive. Monitor 4. Hyper glycemia. Obtain fasting glucose FEN Electrolytes: Monitor and replete when necessary NS at 100 cc/hour Ambulation Discharge Planning Possible discharge in the morning Ralph Ziegler MD Sep 11, 2017 13:39
[2017-09-11 16:36] VITALS: BP 108/74; PULSE 70; RESP 20; TEMP 98.9; O2SAT 98
[2017-09-11] MEDS ORDERED: KETOROLAC TROMETHAMINE 30 MG/ML (IVP) VIAL IV PUSH PRN ×2 (18:15)
[2017-09-11] MEDS ORDERED: MORPHINE SULFATE 2 MG/ML INJ IV PUSH PRN (18:15)
[2017-09-11 20:59] VITALS: BP 119/67; PULSE 84; RESP 18; TEMP 98.4; O2SAT 100
[2017-09-11] MEDS: DOCUSATE SODIUM 50 MG/SENNA 8.6 MG TAB PO SCH (21:00)
[2017-09-11 23:29] VITALS: BP 99/58; PULSE 77; RESP 18; TEMP 98.1; O2SAT 98
[2017-09-12 03:07] VITALS: BP 91/55; PULSE 90; RESP 18; TEMP 97.9; O2SAT 98
[2017-09-12] MEDS: SODIUM CHLOR 0.9% 1000 ML INJ 1,000 ML IV SCH ×2 (06:41→13:11)
[2017-09-12 07:09] LABS: BASOPHIL % 0.3 % (0.0-2.0); EOSINOPHIL # 0.6 TH/MM3 (0-0.4); EOSINOPHIL % 6.6 % (0.0-4.0); HEMATOCRIT 33.7 % (35.0-46.0); HEMOGLOBIN 11.6 GM/DL (11.6-15.3); LYMPH % 24.8 % (9.0-44.0); LYMPHOCYTE # 2.4 TH/MM3 (1.0-4.8); MEAN CELL VOLUME 91.2 FL (80.0-100.0); MEAN CORPUSCULAR HEMOGLOBIN 31.4 PG (27.0-34.0); MEAN CORPUSCULAR HGB CONC 34.4 % (32.0-36.0); MONO % 7.6 % (0.0-8.0); MONOCYTE # 0.7 TH/MM3 (0-0.9); NEUT % 60.7 % (16.0-70.0); PLATELET COUNT 185 TH/MM3 (150-450); RED BLOOD COUNT 3.69 MIL/MM3 (4.00-5.30); RED CELL DISTRIBUTION WIDTH 12.9 % (11.6-17.2); WHITE BLOOD COUNT 9.8 TH/MM3 (4.0-11.0)
[2017-09-12 07:18] LABS: BICARBONATE 24.5 MEQ/L (21.0-32.0); CALCIUM 8.4 MG/DL (8.5-10.1); CREATININE 0.78 MG/DL (0.50-1.00); MAGNESIUM 1.9 MG/DL (1.5-2.5)
--- NOTE | 2017-09-12 07:49 | HHI.PR ---
Subjective Remarks Follow-up ileus. Improving abdominal pain and tolerating diet. She had bowel movement yesterday refused Jada-Colace. Discussed with nursing Objective Vitals Vital Signs Date Time Temp Pulse Resp B/P (MAP) Pulse Ox O2 Delivery O2 Flow Rate FiO2 09/12/17 03:07 97.9 90 18 91/55 (67) 98 09/11/17 23:29 98.1 77 18 99/58 (72) 98 09/11/17 20:59 98.4 84 18 119/67 (84) 100 09/11/17 20:29 18 09/11/17 16:36 98.9 70 20 108/74 (85) 98 09/11/17 14:20 09/11/17 11:54 98.4 85 18 138/76 (96) 100 Room Air 09/11/17 08:42 98.8 89 17 129/76 (93) 98 Room Air I/O 09/11/17 09/11/17 09/11/17 09/12/17 09/12/17 09/12/17 07:00 15:00 23:00 07:00 15:00 23:00 Intake Total 200 ml 1000 ml Balance 200 ml 1000 ml Intake Oral 200 ml IV Total 1000 ml Result Diagram: 09/12/17 0640 09/12/17 0640 Imaging Last Impressions Abdomen/Pelvis CT 09/10/17 1636 Signed Impressions: Service Date/Time: September 17:45 - CONCLUSION: 1. Nonspecific appearance to the bowel with mild dilation of distal small bowel loops and some air-fluid levels in the colon. The findings suggest ileus. Recommend serial films. Sidney Gomez MD Pelvis Ultrasound 09/10/17 0000 Signed Impressions: Service Date/Time: September 19:26 - CONCLUSION: Bilateral ovarian cysts. No evidence of free fluid. Sidney Gomez MD Objective Remarks GENERAL: female lying in bed, well-developed and well-nourished SKIN: No rashes, ecchymoses or lesions. Cool and dry. CARDIOVASCULAR: Regular rate and rhythm without murmurs, gallops, or rubs. RESPIRATORY: Clear to auscultation. Breath sounds equal bilaterally. No wheezes , rales, or rhonchi. GASTROINTESTINAL: Abdomen soft, slight tender with palpation in the bilateral lower quadrants, nondistended. No guarding. MUSCULOSKELETAL: Extremities without clubbing, cyanosis, or edema. No joint tenderness, effusion, or edema noted. No calf tenderness. NEUROLOGICAL: Awake and alert. Cranial nerves II through XII intact. Motor and sensory grossly within normal limits. Normal speech. Procedures none A/P Problem List: (1) Intractable abdominal pain ICD Code: R10.9 - Unspecified abdominal pain Status: Acute (2) Ileus ICD Code: K56.7 - Ileus, unspecified Status: Acute Assessment and Plan 1. Intractable abdominal pain/ileus. Improving Patient status post bowel movement in the emergency department Is resting comfortably at the time of my examination Advance diet as tolerated IV Toradol with morphine for breakthrough pain 2. Constipation. Refused Jada-Colace. Improving 3. leukocytosis likely reactive. Improved monitor 4. Hyper glycemia. Normal fasting glucose FEN Electrolytes: Monitor and replete when necessary NS at 100 cc/hour Ambulation Discharge Planning Discharge patient to home Condition on discharge: Improved Regular Diet as tolerated Ad Joanna activity Rx written: None Follow-up with primary care physician Ralph Ziegler MD Sep 12, 2017 07:48
[2017-09-12 08:00] VITALS: BP 111/71; PULSE 71; RESP 18; TEMP 98.2; O2SAT 99
[2017-09-12] MEDS ORDERED: SENNOSIDES 8.6 MG TAB PO PRN (08:00)
[2017-09-12] MEDS ORDERED: MAGNESIUM HYDROXIDE SUSP 30 ML CUP PO PRN (08:00)
[2017-09-12] MEDS ORDERED: BISACODYL 10 MG SUPP RECTAL PRN (08:00)
[2017-09-12] MEDS ORDERED: LACTULOSE SYRUP 20 GM/30 ML CUP PO PRN (08:00)
[2017-09-12] MEDS: SODIUM CHLORIDE 0.9% FLUSH 10 ML FLUSH IV FLUSH SCH (08:20)
[2017-09-12] MEDS: DOCUSATE SODIUM 50 MG/SENNA 8.6 MG TAB PO SCH (08:20)
[2017-09-12 12:20] VITALS: BP 106/67; PULSE 74; RESP 16; TEMP 98; O2SAT 100
[2017-09-12 16:38] VITALS: BP 99/60; PULSE 87; RESP 16; TEMP 98; O2SAT 99
== END 2017-09-12 20:19 | disposition home or self-care (01) ==
LOC: NEPD 16:14 → NEDA 20:39 → NEDH 09-11 00:53 → NEPHCDU 09-11 14:30
PROVIDERS: ADMIT Internal Medicine; ATTEND Internal Medicine
DX: K56.7 Ileus, unspecified (principal); N83.201 Unspecified ovarian cyst, right side; N83.202 Unspecified ovarian cyst, left side; D72.829 Elevated white blood cell count, unspecified; F17.210 Nicotine dependence, cigarettes, uncomplicated
CPT/HCPCS: 74177; 76856; 80048; 80053; 81001; 83605; 83690; 83735; 84702; 84703; 85025; 85610; 85730; 93005; 93975; 96361; 96374; 96375; 96376; 99285; G0378; J0500; J1885; J2270; J2405; J2765; J7030; Q9967